=== PATIENT | male | born 2000 | race Hispanic/Latino ===

== ENCOUNTER 2024-02-27 00:01 | Emergency (ER) | payer OTHER ==
[~2024-02-27] VITALS: Ht 165.1 cm; Wt 61.9 kg
[2024-02-27] MEDS: NS (Normal Saline) 0.9% 1,000 ML IV ONE (02:35)
[2024-02-27] MEDS: KETOROLAC 30 MG/ML 1ML VIAL IV ONE (02:37)
[2024-02-27] MEDS: diphenhydrAMINE 50MG/ML VIAL IV ONE (02:39)
[2024-02-27] MEDS: METOCLOPRAMIDE INJ 10MG/2ML VIAL IV ONE (02:40)
[2024-02-27 04:00] VITALS: BP 128/66; TEMP 97.3; O2SAT 99
== END 2024-02-27 04:07 | disposition home or self-care (01) ==
LOC: M ED 00:01
DX: R51.9 Headache, unspecified (principal); F10.10 Alcohol abuse, uncomplicated
CPT/HCPCS: 70450; 96361; 96374; 96375; 99284; J1200; J1885; J2765

== ENCOUNTER → 2024-12-16 | Outpatient (CLI) | payer OTHER ==
[~2024-12-16] MED LIST: METHACHOLINE KIT (6 VIAL.NEB PREMIX) INH ONE
== END ==
LOC: M CARPUL 13:00
DX: R06.02 Shortness of breath (principal)